=== PATIENT | male | born 1970 | race Caucasian/White ===

== ENCOUNTER → 2016-09-26 | Outpatient (CLI) | payer OTHER, BC ==
[~2016-09-26] MED LIST: ALBUAER2 INH; ASCO10003 PO; ATV1 PO; GABA1CAP5 PO; MOME220A INH; MULTTAB58 PO; OMEP40CA PO; OXYC1TAB3 PO
[2016-09-26 10:10] LABS: BLOOD UREA NITROGEN 13 mg/dl (7-18); BUN/CREATININE RATIO 12.2 (10-20); CALCIUM 9.1 mg/dl (8.5-10.1); CARBON DIOXIDE 32 mmol/L (21-32); CHLORIDE 106 mmol/L (98-107); GLUCOSE 88 mg/dl (70-99); POTASSIUM 4.5 mmol/L (3.5-5.1); SODIUM 142 mmol/L (136-145)
[2016-09-26 10:13] LABS: CHOLESTEROL 187 mg/dl (0-200); CHOLESTEROL/HDL RATIO 4.5; HDL CHOLESTEROL 42 mg/dl; LDL CHOLESTEROL CALCULATED 127 mg/dl; TRIGLYCERIDES 90 mg/dl (0-150); VERY LOW DENSITY LIPOPROT CALC 18 mg/dl
[2016-09-26 10:35] LABS: BENZODIAZEPINE, URINE NEG (NEG); COCAINE,URINE NEG (NEG); PHENCYCLIDINE, URINE NEG (NEG)
[2016-09-26 15:30] LABS: LYME DISEASE AB IGG NEG (NEG); LYME DISEASE AB IGM EQUIVOCAL (NEG)
[2016-10-02 04:41] LABS: 18KDIGG BAND NONREACTIVE (NONREACTIVE); 23KDIGG BAND NONREACTIVE (NONREACTIVE); 23KDIGM BAND NONREACTIVE (NONREACTIVE); 28KDIGG BAND NONREACTIVE (NONREACTIVE); 30KDIGG BAND NONREACTIVE (NONREACTIVE); 39KDIGG BAND NONREACTIVE (NONREACTIVE); 39KDIGM BAND NONREACTIVE (NONREACTIVE); 41KDIGG BAND NONREACTIVE (NONREACTIVE); 41KDIGM BAND NONREACTIVE (NONREACTIVE); 45KDIGG BAND NONREACTIVE (NONREACTIVE); 58KDIGG BAND NONREACTIVE (NONREACTIVE); 66KDIGG BAND NONREACTIVE (NONREACTIVE); 93KDIGG BAND NONREACTIVE (NONREACTIVE)
== END | disposition home or self-care (01) ==
LOC: C.LAB1850 08:11
PROVIDERS: ATTEND Family Medicine
DX: Z13.220 Encounter for screening for lipoid disorders (principal); G57.31 Lesion of lateral popliteal nerve, right lower limb; G57.32 Lesion of lateral popliteal nerve, left lower limb; Z51.81 Encounter for therapeutic drug level monitoring

== ENCOUNTER → 2017-01-03 | Outpatient (CLI) | payer OTHER, BC ==
[~2017-01-03] MED LIST changes: -MOME220A INH
--- NOTE | 2017-01-03 17:53 | DIAGNOSTIC IMAGING REPORT ---
LUMBAR SPINE 5 VIEWS CLINICAL HISTORY: Chronic low back pain. FINDINGS: Five views of the lumbar spine are correlated with abdominal CT dated 06/28/2016. The skeletal structures are osteopenic. There is no radiographic evidence of acute fracture or malalignment. Vertebral body height and alignment are maintained throughout the lumbar spine. There are changes from laminectomy and posterior fusion with interposition bone graft seen from L2 through S1. Interpedicular screws are present at all levels with the exception of L5. The orthopedic hardware appears intact. Anterior osteophytes are seen throughout. The transverse processes appear intact. There is evidence of discectomy at L3-L4 and L5-S1. Only mild disc space narrowing is seen at L4-L5. The bony pelvis is intact as imaged. There is a nonobstructed abdominal bowel gas pattern. IMPRESSION: 1. No acute bony abnormality is seen involving the lumbosacral spine. 2. Osteopenia and postoperative change from L2 through S1 spinal fusion, as above. The orthopedic hardware appears intact. Dictated: 01/03/2017 4:36 PM Transcribed: 01/03/2017 5:53 PM [email or web address] Electronically signed by: Bobby Cid M.D. 01/03/2017 10:50 PM Dictated Date/Time: 01/03/2017 4:36 PM
== END | disposition home or self-care (01) ==
LOC: C.RAD 16:11
PROVIDERS: ATTEND Neuromusculoskeletal Medicine & OMM
DX: M96.1 Postlaminectomy syndrome, not elsewhere classified (principal); M54.9 Dorsalgia, unspecified; M85.88 Other specified disorders of bone density and structure, other site; Z98.1 Arthrodesis status

== ENCOUNTER → 2017-07-15 | Outpatient (CLI) | payer OTHER, BC ==
[~2017-07-15] MED LIST changes: +GABA-1220 PO; -GABA1CAP5 PO; +OXYC-90 PO; -OXYC1TAB3 PO
[2017-07-15 12:35] LABS: ALBUMIN 3.7 gm/dl (3.4-5.0); TOTAL PROTEIN 7.4 gm/dl (6.4-8.2)
== END | disposition home or self-care (01) ==
LOC: C.LAB 10:37
PROVIDERS: ATTEND Nurse Practitioner Family
DX: G89.4 Chronic pain syndrome (principal); M62.830 Muscle spasm of back; E29.1 Testicular hypofunction; N40.1 Benign prostatic hyperplasia with lower urinary tract symptoms; Z80.42 Family history of malignant neoplasm of prostate

== ENCOUNTER → 2017-07-31 | Outpatient (CLI) | payer BC ==
[~2017-07-31] MED LIST changes: -GABA-1220 PO; +GABA1CAP5 PO; -OXYC-90 PO; +OXYC1TAB3 PO
--- NOTE | 2017-07-31 07:00 | DIAGNOSTIC IMAGING REPORT ---
KUB CLINICAL HISTORY: LEFT FLANK PAIN COMPARISON STUDY: No previous studies for comparison. FINDINGS: There are postsurgical changes present within the lumbar spine. There is no pathologic bowel dilatation. No urinary tract calculi are visualized on conventional radiographic evaluation. There are few tiny nonspecific pelvic basin calcifications, statistically represent phleboliths. IMPRESSION: 1. No evidence of pathologic bowel dilatation 2. No urinary tract calculi are visualized on conventional radiographic imaging Electronically signed by: Bridger Friend M.D. 07/31/2017 6:58 AM Dictated Date/Time: 07/31/2017 6:58 AM
--- NOTE | 2017-07-31 07:10 | DIAGNOSTIC IMAGING REPORT ---
(RENAL)RETROPERITON COMP HISTORY: Flank pain FLANK PAIN COMPARISON: None. FINDINGS: Right kidney: Maximum dimension 11.1 cm. No evidence for hydronephrosis. Normal corticomedullary differentiation and cortical thickness. Left kidney: Maximum dimension 10.2 cm. No evidence for hydronephrosis. Normal corticomedullary differentiation and cortical thickness. Bladder: No bladder wall thickening. The bilateral ureteral jets were identified. IMPRESSION: Normal renal ultrasound. The above report was generated using voice recognition software. It may contain grammatical, syntax or spelling errors. Electronically signed by: Anant Murray M.D. 07/31/2017 7:09 AM Dictated Date/Time: 07/31/2017 7:08 AM
== END | disposition home or self-care (01) ==
LOC: C.ULTR 06:25
PROVIDERS: ATTEND Urology
DX: R10.9 Unspecified abdominal pain (principal)

== ENCOUNTER → 2017-09-25 | Outpatient (CLI) | payer BC ==
[~2017-09-25] MED LIST changes: +GABA-1220 PO; -GABA1CAP5 PO
== END | disposition home or self-care (01) ==
LOC: C.LABPBG 15:20
PROVIDERS: ATTEND Neuromusculoskeletal Medicine & OMM
DX: E53.8 Deficiency of other specified B group vitamins (principal); R63.4 Abnormal weight loss